=== PATIENT | male | born 1960 | race Caucasian/White ===

== ENCOUNTER 2023-12-10 12:34 | Emergency (ER) | payer MEDICAID ==
[2023-12-10 12:39] VITALS: BP 157/94; PULSE 66
[2023-12-10] MEDS ORDERED: Sodium Chloride 0.9% 1,000 ML IV ONE (13:04)
[2023-12-10] MEDS ORDERED: Pantoprazole 40 MG Vial IVPUSH SCH (13:15)
[2023-12-10 13:18] LABS: BASOPHILS ABSOLUTE AUTO 0.02 10^3/uL (0.00-0.50); BASOPHILS PERCENT AUTO 0.1 % (0-1); EOSINOPHILS ABSOLUTE AUTO 0.08 10^3/uL (0.00-1.50); EOSINOPHILS PERCENT AUTO 0.6 % (0-6); HEMATOCRIT 44.9 % (42.0-52.0); HEMOGLOBIN 15.7 g/dL (14.0-18.0); IMMATURE GRAN ABSOLUTE AUTO 0.02 10^3/uL (0.00-0.49); IMMATURE GRAN PERCENT AUTO 0.1 % (0.0-4.9); LYMPHOCYTES ABSOLUTE AUTO 1.45 10^3/uL (0.60-5.00); LYMPHOCYTES PERCENT AUTO 10.6 % (24-44); MEAN CORPUSCULAR HEMOGLOBIN 32.6 pg (27.0-32.0); MEAN CORPUSCULAR VOLUME 93.3 fL (83.0-97.0); MONOCYTES ABSOLUTE AUTO 1.02 10^3/uL (0.00-1.50); MONOCYTES PERCENT AUTO 7.5 % (0-10); NEUTROPHILS ABSOLUTE AUTO 11.05 x10^3/uL (1.80-8.00); NEUTROPHILS PERCENT AUTO 81.1 % (41-71); PLATELET COUNT,PLT 263 10^3/uL (150-400); RED BLOOD CELL COUNT 4.81 x10^6/uL (4.50-6.00); WHITE BLOOD CELL COUNT,WBC 13.6 10^3/uL (4.0-11.0)
[2023-12-10 13:31] LABS: ALANINE AMINOTRANSFERASE,ALT 30 U/L (12-78); ALBUMIN 4.1 g/dL (3.4-5.0); ALKALINE PHOSPHATASE 75 U/L (46-116); ASPARTATE AMNIOTRANSFERASE,AST 28 U/L (15-37); BILIRUBIN TOTAL 0.8 mg/dL (0.0-1.0); BLOOD UREA NITROGEN,BUN 21 mg/dL (7-18); CALCIUM 9.5 mg/dL (8.4-10.1); CARBON DIOXIDE,CO2 25 mmol/L (21-32); CHLORIDE,CL 100 mEq/L (98-106); EST CRCL DRUG DOSING (CG) 65.52 mL/min; GLUCOSE RANDOM 123 mg/dL (75-99); LIPASE 19 U/L (16-77); POTASSIUM,K 3.8 mEq/L (3.5-5.0); PROTEIN TOTAL,TP 7.5 g/dL (6.4-8.2); SODIUM,NA 140 mEq/L (136-145)
[2023-12-10 13:32] LABS: ESTIMATED GFR 86 mL/min (>=60); ETHANOL BLOOD MEDICAL < 3 mg/dL (0-3)
== END 2023-12-10 13:20 | disposition left against medical advice (07) ==
LOC: CC.ED 12:34
DX: R10.13 Epigastric pain (principal); Z79.899 Other long term (current) drug therapy
CPT/HCPCS: 36415; 80053; 80307; 83690; 85025; 99284

== ENCOUNTER 2023-12-10 14:23 | Emergency (ER) | payer MEDICAID ==
[2023-12-10 14:28] VITALS: BP 134/98; PULSE 66
[2023-12-10] MEDS: Sucralfate 1 GM Tab PO ONE (14:35)
[2023-12-10] MEDS: Pantoprazole 40 MG Vial IVPUSH ONE (14:35)
[2023-12-10] MEDS: Ondansetron 4 MG/2 ML SDV IVPUSH STA (14:44)
[2023-12-10] MEDS ORDERED: Naloxone 2 MG/2 ML Syringe IVPUSH PRN (15:08)
[2023-12-10] MEDS: HYDROmorphone 1 MG/ML Syringe IVPUSH ONE (15:12)
[2023-12-10 15:14] LABS: APPEARANCE,URINE CLEAR (CLEAR); COLOR,URINE YELLOW (YELLOW); GLUCOSE,URINE NEGATIVE (NEGATIVE); KETONES,URINE >=160 mg/dL (NEGATIVE); LEUKOCYTE ESTERASE,URINE NEGATIVE (NEGATIVE); NITRITE,URINE NEGATIVE (NEGATIVE); OCCULT BLOOD,URINE NEGATIVE (NEGATIVE); PH,URINE >= 9.0 (4.5-8.0); PROTEIN,URINE 100 mg/dL (NEGATIVE); UROBILINOGEN,URINE 0.2 EU/dL (0.2-1.0)
[2023-12-10 15:19] LABS: AMPHETAMINES,URINE NEGATIVE (NEGATIVE); BARBITURATES,URINE NEGATIVE (NEGATIVE); BENZODIAZEPINE,URINE NEGATIVE (NEGATIVE); BILIRUBIN,URINE SMALL (NEGATIVE); MDMA (ECSTASY), URINE NEGATIVE (NEGATIVE); METHADONE,URINE NEGATIVE (NEGATIVE); METHAMPHETAMINES,URINE NEGATIVE (NEGATIVE); OPIATES,URINE NEGATIVE (NEGATIVE); OXYCODONE,URINE NEGATIVE (NEGATIVE); PHENCYCLIDINE,URINE NEGATIVE (NEGATIVE); TCA,URINE POSITIVE (NEGATIVE)
[2023-12-10 15:23] LABS: RBC,URINE 0-5 /HPF (0-5); WBC,URINE 0-5 /HPF (0-5)
[2023-12-10] MEDS: diphenhydrAMINE 50 MG/ML SDV IVPUSH ONE (15:40)
== END 2023-12-10 16:13 | disposition home or self-care (01) ==
LOC: CC.ED 14:23
DX: R10.9 Unspecified abdominal pain (principal); Z79.899 Other long term (current) drug therapy
CPT/HCPCS: 80305; 81001; 96374; 96375; 99284; A9270; C9113; J1170; J1200; J2405